=== PATIENT | female | born 1995 | race Caucasian/White ===

== ENCOUNTER 2022-04-18 14:50 | Emergency (ER) | payer MEDICAID ==
[2022-04-18] MEDS ORDERED: Sodium Chloride 0.9% 10 ML Syringe FLUSH PRN (15:07)
[2022-04-18] MEDS ORDERED: Sodium Chloride 0.9% 2.5 ML Syringe FLUSH PRN (15:07)
[2022-04-18] MEDS ORDERED: Morphine 2 MG/ML SYRINGE IVPUSH ONE (16:30)
[2022-04-18] MEDS ORDERED: Acetaminophen/HYDROcodone 325-5 MG Tab PO ONE (16:55)
[2022-04-18 17:27] LABS: POTASSIUM,K 3.2 mmol/L (3.5-5.1)
[2022-04-18] MEDS ORDERED: Acetaminophen 325 MG Tab PO ONE (18:10)
== END 2022-04-18 18:24 | disposition left against medical advice (07) ==
LOC: MW.ED 14:50
DX: O03.4 Incomplete spontaneous abortion without complication (principal); Z88.1 Allergy status to other antibiotic agents; Z88.5 Allergy status to narcotic agent
CPT/HCPCS: 36415; 76830; 80048; 84702; 85025; 85610; 86850; 86900; 86901; 99284; A9270